=== PATIENT | male | born 1990 | race Caucasian/White ===

== ENCOUNTER 2017-06-09 19:12 | Emergency (ER) | payer OTHER ==
[~2017-06-09] VITALS: Ht 177.8 cm; Wt 83.2 kg
[2017-06-09 19:27] VITALS: TEMP 37; Ht 177.8 cm; Wt 83.2 kg
--- NOTE | 2017-06-09 20:58 | EMERGENCY ROOM VISIT NOTE ---
History First contact with patient: 20:30 Chief Complaint: FLANK PAIN Stated Complaint: LEFT SIDE PAIN, NAUSEA History of Present Illness The patient is a 26 year old male who presents to the Emergency Room with complaints of intermittent left flank pain. The patient reports that he has had intermittent mild left flank pain over the past few weeks. He states that while at work this evening, he had an episode of severe left flank pain. The pain was initially very sharp but then became dull and aching. He had associated nausea and difficulty breathing with the severe pain but these have resolved. He denies any abdominal pain, vomiting, diarrhea, constipation or fevers. He reports that initially, the pain was an 8/10 that he now reports the pain is 2/10. He does report he has had some increased frequency of urination with some turning since yesterday. He reports his urine appeared to be slightly red at the end of the stream. He denies any history of kidney stones or urinary tract infections. Review of Systems A complete 10 point review of systems was reviewed with the patient with pertinent positives and negatives as per history of present illness. All else were negative. Past Medical/Surgical History Medical Problems: (1) No significant past medical history Surgical Problems: (1) No significant past surgical history Family History Diabetes mellitus FHx: cancer Hypertension Kidney stones Social History Smoking Status: Never Smoker Alcohol Use: occasionally Occupation Status: employed Current/Historical Medications Scheduled Ondasetron Odt (Zofran Odt), 4 MG SL Q6H Tamsulosin Hcl (Flomax), 0.4 MG PO DAILY Scheduled PRN Oxycodone/Acetaminophen 5MG/325MG (Percocet 5MG/325MG), 1-2 TABS PO Q4H PRN for Pain Physical Exam Vital Signs Date Time Temp Pulse Resp B/P (MAP) Pulse Ox O2 Delivery O2 Flow Rate FiO2 06/09/17 22:40 79 16 126/79 99 06/09/17 21:30 86 16 128/80 96 Room Air 06/09/17 19:27 37.0 98 16 153/89 98 Room Air Physical Exam VITALS: Vitals are noted on the nurse's note and reviewed by myself. Vital signs stable. GENERAL: This is a 26-year-old male, in no acute distress, nondiaphoretic, well- developed well-nourished. SKIN: The skin was without rashes. MOUTH: Mucous membranes moist. HEART: Regular rate and rhythm without murmurs gallops or rubs. LUNGS: Clear to auscultation bilaterally without wheezes, rales or rhonchi. ABDOMEN: Positive bowel sounds x 4. Soft, nontender to palpation. MUSCULOSKELETAL: Mild left CVA tenderness. NEURO: Patient was alert and oriented to person place and time. Medical Decision & Procedures ER Provider Diagnostic Interpretation: ABD/PELVIS WITHOUT FOR STONE HISTORY: 26 years-old Male left flank pain, nausea acute left-sided flank pain with nausea COMPARISON: None available TECHNIQUE: Multiple axial CT images of the abdomen and pelvis were obtained without contrast. A dose lowering technique was used consistent with the principals of REBEKAH. FINDINGS: Lung bases are generally clear. No pneumatosis or pneumoperitoneum. Imaged inferior cardiac chambers are unremarkable. Liver, spleen, gallbladder, pancreas and adrenal glands are within normal limits. There are several nonobstructing renal calculi on the right measuring up to 5 mm. Punctate nonobstructing calculus of the inferior pole left kidney. Mild left-sided hydroureteronephrosis secondary to a 3 x 3 x 2 mm calculus of the left ureterovesicular junction. Mild perinephric and periureteral inflammatory stranding. Urinary bladder and prostate appear unremarkable. Aorta is normal in both course and caliber. No bulky adenopathy. No bowel obstruction or focal bowel wall thickening. Normal appendix. Soft tissues are unremarkable. Bones appear intact. IMPRESSION: 1. Mild left-sided hydroureteronephrosis secondary to a 3 x 3 x 2 mm calculus of the left ureterovesicular junction. 2. Bilateral nonobstructing nephrolithiasis, right greater than left. Laboratory Results 06/09/17 21:03 Red Blood Count 5.05, Mean Corpuscular Volume 85.7, Mean Corpuscular Hemoglobin 30.1, Mean Corpuscular Hemoglobin Concent 35.1, Mean Platelet Volume 10.0, Neutrophils (%) (Auto) 75.5, Lymphocytes (%) (Auto) 15.1, Monocytes (%) (Auto) 6.9, Eosinophils (%) (Auto) 2.0, Basophils (%) (Auto) 0.4, Neutrophils # (Auto) 5.80, Lymphocytes # (Auto) 1.16, Monocytes # (Auto) 0.53, Eosinophils # (Auto) 0.15, Basophils # (Auto) 0.03 06/09/17 21:03 Test 06/09/17 20:58 06/09/17 21:03 Urine Color YELLOW Urine Appearance CLEAR (CLEAR) Urine pH 5.0 (4.5-7.5) Urine Specific [place] 1.029 (1.000-1.030) Urine Protein TRACE (NEG) Urine Glucose (UA) NEG (NEG) Urine Ketones NEG (NEG) Urine Occult Blood 3+ (NEG) Urine Nitrite NEG (NEG) Urine Bilirubin NEG (NEG) Urine Urobilinogen NEG (NEG) Urine Leukocyte Esterase NEG (NEG) Urine WBC (Auto) 1-5 /hpf (0-5) Urine RBC (Auto) >30 /hpf (0-4) Urine Hyaline Casts (Auto) 10-30 /lpf (0-5) Urine Epithelial Cells (Auto) 20-30 /lpf (0-5) Urine Bacteria (Auto) NEG (NEG) White Blood Count 7.68 K/uL (4.8-10.8) Red Blood Count 5.05 M/uL (4.7-6.1) Hemoglobin 15.2 g/dL (14.0-18.0) Hematocrit 43.3 % (42-52) Mean Corpuscular Volume 85.7 fL (80-100) Mean Corpuscular Hemoglobin 30.1 pg (25-34) Mean Corpuscular Hemoglobin Concent 35.1 g/dl (32-36) Platelet Count 179 K/uL (130-400) Mean Platelet Volume 10.0 fL (7.4-10.4) Neutrophils (%) (Auto) 75.5 % Lymphocytes (%) (Auto) 15.1 % Monocytes (%) (Auto) 6.9 % Eosinophils (%) (Auto) 2.0 % Basophils (%) (Auto) 0.4 % Neutrophils # (Auto) 5.80 K/uL (1.4-6.5) Lymphocytes # (Auto) 1.16 K/uL (1.2-3.4) Monocytes # (Auto) 0.53 K/uL (0.11-0.59) Eosinophils # (Auto) 0.15 K/uL (0-0.5) Basophils # (Auto) 0.03 K/uL (0-0.2) RDW Standard Deviation 38.0 fL (36.4-46.3) RDW Coefficient of Variation 12.1 % (11.5-14.5) Immature Granulocyte % (Auto) 0.1 % Immature Granulocyte # (Auto) 0.01 K/uL (0.00-0.02) Anion Gap 6.0 mmol/L (3-11) Est Creatinine Clear Calc Drug Dose 124.5 ml/min Estimated GFR () 131.6 Estimated GFR (Non- 113.6 BUN/Creatinine Ratio 14.2 (10-20) Calcium Level 9.0 mg/dl (8.5-10.1) Total Bilirubin 0.4 mg/dl (0.2-1) Aspartate Amino Transf (AST/SGOT) 33 U/L (15-37) Alanine Aminotransferase (ALT/SGPT) 67 U/L (12-78) Alkaline Phosphatase 92 U/L (45-117) Total Protein 7.8 gm/dl (6.4-8.2) Albumin 4.2 gm/dl (3.4-5.0) Globulin 3.6 gm/dl (2.5-4.0) Albumin/Globulin Ratio 1.2 (0.9-2) Medications Administered Medications (Trade) Dose Ordered Sig/Michael Route Start Time Stop Time Status Last Admin Dose Admin Ondansetron HCl (ZOFRAN ODT 4MG Home Pack) 1 homepack UD ONCE PO 06/09/17 22:15 06/09/17 22:16 DC 06/09/17 22:39 1 HOMEPACK Oxycodone/ Acetaminophen (Percocet 5/ 325MG Home Pack) 1 homepack UD ONCE PO 06/09/17 22:15 06/09/17 22:16 DC 06/09/17 22:39 1 HOMEPACK Medical Decision Differential diagnosis includes kidney stone, pyelonephritis, musculoskeletal pain, herpes zoster, colitis, among others. The patient is a 26-year-old male who presents today complaining of left flank pain. Labs revealed and leukocytosis. Urinalysis showed 3+ blood and was not suggestive of infection. CT showed a stone at the left UVJ. Patient did not require any analgesic the emergency department. He was informed of the findings. He was given home packs and prescriptions of Zofran and Percocet. He was given a prescription of Flomax. He was given a urine strainer. He was instructed to follow-up with his PCP and urology as needed. Based on the patient's presentation and work up, I feel the patient is stable for outpatient treatment. The patient was educated to return to the emergency department for any worsening of their current condition or new/concerning symptoms. He will follow up with his PCP/urology. [facility] Drug Monitoring Program Search Results: patient reviewed within database Medication Reconcilliation Current Medication List: was personally reviewed by me Blood Pressure Screening Patient's blood pressure: Normal blood pressure Impression Primary Impression: Ureteral calculus, left Departure Information Dispostion Home / Self-Care Condition GOOD Prescriptions Tamsulosin Hcl (FLOMAX) 0.4 Mg Cap 0.4 MG PO DAILY for 10 Days, #10 CAP Prov: Cheryl More PA-C 06/09/17 Oxycodone/Acetaminophen 5MG/325MG (PERCOCET 5MG/325MG) Tab 1-2 TABS PO Q4H Y for Pain, #15 TAB For Initial Treatment Prov: Cheryl More PA-C 06/09/17 Ondasetron Odt (ZOFRAN ODT) 4 Mg Tab 4 MG SL Q6H for Nausea, #15 TAB Prov: Cheryl More PA-C 06/09/17 Referrals No Doctor, Assigned (PCP) Gisele Roper MD Patient Instructions My [facility] Additional Instructions You have been treated in the Emergency Department today for a Kidney Stone ( Nephrolithiasis). You have been prescribed Percocet to be used for pain control. This is a narcotic medication. You cannot drive or consume alcohol while on this medicine. This medicine should only be used for pain that cannot be controlled with [id number] pain medicines. You have been prescribed Zofran to be used for any nausea or vomiting. Take as prescribed. You have been prescribed Flomax 0.4 mg to be taken ONCE daily. This medicine has been prescribed as it can help relax the smooth muscles of the urinary tract increasing transit time of the kidney stone. For pain control, you can use the following [id number] medicines (if >12 yo): - Regular strength (325mg/tab) Tylenol (acetaminophen) 2 tabs every 4-6 hours as needed. Do not exceed 12 tablets in a 24 hour period. Avoid taking more than 4 grams (4000 mg) of Tylenol per day. This includes any other sources of acetaminophen you may take on a regular basis. - Regular strength (200 mg/tab) Advil (ibuprofen) 1-2 tabs every 4-6 hours as needed. Do not exceed a dose of 3200 mg per day. You have been provided a strainer and specimen collection cup. You should strain your urine to collect any passed stones. Your stones can be placed into the specimen cup and taken to your Urologist for further evaluation. Follow-up with your primary care provider within one week. You may also follow- up with urology as needed. Return to the Emergency Department if your symptoms persist despite the treatment plan outlined above or if you develop the following symptoms: intractable pain, fever, chills, or large amounts of blood in your urine.
[2017-06-09 21:23] LABS: BASO % 0.4 %; BASO ABS # 0.03 K/uL (0-0.2); EOS ABS # 0.15 K/uL (0-0.5); HEMATOCRIT 43.3 % (42-52); HEMOGLOBIN 15.2 g/dL (14.0-18.0); IG# 0.01 K/uL (0.00-0.02); LYMPH % 15.1 %; LYMPH ABS # 1.16 K/uL (1.2-3.4); MEAN CELL VOLUME 85.7 fL (80-100); MEAN CORPUSCULAR HEMOGLOBIN 30.1 pg (25-34); MEAN CORPUSCULAR HGB CONC 35.1 g/dl (32-36); MONO % 6.9 %; MONO ABS # 0.53 K/uL (0.11-0.59); NEUT % 75.5 %; PLATELET COUNT 179 K/uL (130-400); RED CELL DISTRIBUTION WIDTH CV 12.1 % (11.5-14.5); WHITE BLOOD COUNT 7.68 K/uL (4.8-10.8)
[2017-06-09 21:40] LABS: ALBUMIN 4.2 gm/dl (3.4-5.0); CREATININE 0.92 mg/dl (0.60-1.40); POTASSIUM 3.5 mmol/L (3.5-5.1)
[2017-06-09 21:43] LABS: TOTAL PROTEIN 7.8 gm/dl (6.4-8.2)
--- NOTE | 2017-06-09 21:43 | DIAGNOSTIC IMAGING REPORT ---
ABD/PELVIS WITHOUT FOR STONE HISTORY: 26 years-old Male left flank pain, nausea acute left-sided flank pain with nausea COMPARISON: None available TECHNIQUE: Multiple axial CT images of the abdomen and pelvis were obtained without contrast. A dose lowering technique was used consistent with the principals of REBEKAH. FINDINGS: Lung bases are generally clear. No pneumatosis or pneumoperitoneum. Imaged inferior cardiac chambers are unremarkable. Liver, spleen, gallbladder, pancreas and adrenal glands are within normal limits. There are several nonobstructing renal calculi on the right measuring up to 5 mm. Punctate nonobstructing calculus of the inferior pole left kidney. Mild left-sided hydroureteronephrosis secondary to a 3 x 3 x 2 mm calculus of the left ureterovesicular junction. Mild perinephric and periureteral inflammatory stranding. Urinary bladder and prostate appear unremarkable. Aorta is normal in both course and caliber. No bulky adenopathy. No bowel obstruction or focal bowel wall thickening. Normal appendix. Soft tissues are unremarkable. Bones appear intact. IMPRESSION: 1. Mild left-sided hydroureteronephrosis secondary to a 3 x 3 x 2 mm calculus of the left ureterovesicular junction. 2. Bilateral nonobstructing nephrolithiasis, right greater than left. The above report was generated using voice recognition software. It may contain grammatical, syntax or spelling errors. Electronically signed by: Steven Douglas M.D. 06/09/2017 9:42 PM Dictated Date/Time: 06/09/2017 9:38 PM
[2017-06-09] MEDS ORDERED: ONDANSETRON HOME PACK 4MG OD TAB PO ONE (22:15)
[2017-06-09] MEDS ORDERED: PERCOCET HOME PACK PO ONE (22:15)
[2017-06-09] MEDS ORDERED: OXYC-57 PO (22:29)
[2017-06-09] MEDS ORDERED: ONDA4TAB10 SL (22:29)
[2017-06-09] MEDS ORDERED: TAMS0.4C38 PO (22:31)
[2017-06-09 22:40] VITALS: BP 126/79; PULSE 79; O2SAT 99
== END 2017-06-09 22:40 | disposition home or self-care (01) ==
LOC: C.EDB 19:13 → C.EDA 22:40
DX: N20.1 Calculus of ureter (principal); D72.829 Elevated white blood cell count, unspecified; Z83.3 Family history of diabetes mellitus; Z82.49 Family history of ischemic heart disease and other diseases of the circulatory system; Z84.1 Family history of disorders of kidney and ureter

== ENCOUNTER 2017-09-30 07:27 | Emergency (ER) | payer OTHER ==
[~2017-09-30] VITALS: Ht 177.8 cm; Wt 82.5 kg
[~2017-09-30 07:27] MED LIST: ONDA4TAB10 SL; OXYC-57 PO
[2017-09-30 07:31] VITALS: Ht 177.8 cm; Wt 82.5 kg
[2017-09-30] MEDS ORDERED: ONDANSETRON INJ 2 MG/ML 2 ML VIAL IV STA (07:39)
[2017-09-30] MEDS ORDERED: SODIUM CHLORIDE 0.9% 1000ML 1,000 ML IV STA (07:39)
[2017-09-30] MEDS ORDERED: KETOROLAC TROMETHAMINE 30 MG/ML VIAL IV STA (07:39)
[2017-09-30] MEDS ORDERED: MoRPHine SULFATE 4 MG/ML 1 ML CARP\\VIAL IV PRN (07:45)
--- NOTE | 2017-09-30 07:48 | EMERGENCY ROOM VISIT NOTE ---
History Report prepared by Humphrey: Refugio Zaldivar Under the Supervision of: Dr. Chris Ann D.O. First contact with patient: 07:34 Chief Complaint: KIDNEY STONE Stated Complaint: KIDNEY STONE History of Present Illness The patient is a 26 year old male who presents to the Emergency Room with complaints of intermittent right sided flank pain that began 3 weeks ago. The patient states that he has a history of kidney stones, and had his last one in May of this year. There were 3 total stones in the kidney on this visit. He notes that his pain has onset and resolved 3 times over the past three weeks. This episode of pain began at 0530 this morning 2 hours ago. He has vomited twice since this morning, and is nauseous. He has not followed with urology. Source of History: patient Onset: 3 weeks ago Position: back (Right Flank) Timing: intermittent Associated Symptoms: + nausea, + vomiting Review of Systems See HPI for pertinent positives & negatives. A total of 10 systems reviewed and were otherwise negative. Past Medical & Surgical Medical Problems: (1) No significant past medical history Surgical Problems: (1) No significant past surgical history Family History Diabetes mellitus FHx: cancer Hypertension Kidney stones Social History Smoking Status: Never Smoker Alcohol Use: occasionally Occupation Status: employed Current/Historical Medications Scheduled Ondasetron Odt (Zofran Odt), 4 MG SL Q6H Tamsulosin Hcl (Flomax), 0.4 MG PO DAILY Scheduled PRN Oxycodone Immediate Rel Tab (Roxicodone Ir), 1-2 TAB PO Q4H PRN for Severe Pain Allergies Coded Allergies: No Known Allergies (Unverified , 09/30/17) Physical Exam Vital Signs Date Time Temp Pulse Resp B/P (MAP) Pulse Ox O2 Delivery O2 Flow Rate FiO2 09/30/17 10:26 36.7 74 18 114/55 97 09/30/17 10:10 74 18 114/55 97 09/30/17 08:10 88 09/30/17 07:31 36.7 76 18 132/82 94 Room Air Physical Exam GENERAL: Patient is awake, alert, and in no acute distress. Patient is very uncomfortable appearing. EYES: The conjunctivae are clear. The pupils are round and reactive. EARS, NOSE, MOUTH AND THROAT: The nose is without any evidence of any deformity. Mucous membranes are moist tongue is midline NECK: The neck is nontender and supple. RESPIRATORY: Normal respiratory effort is noted there is no evidence of wheezing rhonchi or rales CARDIOVASCULAR: Regular rate and rhythm noted there no murmurs rubs or gallops normal S1 normal S2 GASTROINTESTINAL: The abdomen is soft. Bowel sounds are present in all quadrants. Abdomen is nontender PELVIS: The Pelvis is stable. No tenderness to palpation is noted. BACK: No midline tenderness or or step-off noted range of motion in flexion extension as well as rotation no signs of muscle spasm noted. There is right CVA tenderness to percussion. MUSCULOSKELETAL/EXTREMITIES: There is no evidence of gross deformity full range of motion is noted in the hips and shoulders SKIN: There is no obvious evidence of any rash. There are no petechiae, pallor or cyanosis noted. NEUROLOGIC: Patient is awake alert and oriented x3. Medical Decision & Procedures ER Provider Diagnostic Interpretation: Radiology results as stated below per my review and radiologist interpretation: KUB HISTORY: Acute generalized abdominal pain with history of kidney stones ABDOMINAL PAIN/GI COMPARISON: CT abdomen and pelvis 06/09/2017. FINDINGS: The bowel gas pattern is non-obstructive. There is no organomegaly. 4 mm calculus of the superior pole right kidney redemonstrated. There are suggested additional nonobstructing calculi of the interpolar right kidney. No ureteral calculi or left nephrolithiasis identified. Calcifications of the pelvis suggest phleboliths. Indeterminate 2 mm calcification of the right hemipelvis. No pneumoperitoneum or pneumatosis. No fracture. IMPRESSION: Right-sided nephrolithiasis redemonstrated without definite ureteral calculi identified. 2 mm calcification of the right hemipelvis suggest phlebolith. Correlate with urinalysis to exclude ureteral calculus. Electronically signed by: Steven Douglas M.D. 09/30/2017 9:07 AM Dictated Date/Time: 09/30/2017 9:04 AM (RENAL)RETROPERITON COMP CLINICAL HISTORY: 26 years-old Male presenting with right flank pain. TECHNIQUE: Real-time grayscale and limited color Doppler ultrasound imaging of the kidneys and bladder was performed. COMPARISON: CT from 06/09/2017. FINDINGS: Right kidney: Normal echogenicity of renal parenchyma. Right kidney measures 11.0 cm. Mild pelvocaliectasis, which is new since prior CT. 7 mm hyperechogenic shadowing focus at the upper pole, likely renal calculus. A 1.1 cm simple cyst is also noted in the right kidney. Left kidney: Normal echogenicity of renal parenchyma. Left kidney measures 11.0 cm. No hydronephrosis. No convincing evidence of calculus or mass. Bladder: Under distended and incompletely evaluated. Hyperechogenic focus in the region of the right ureterovesical junction with twinkling artifact suggested. Bilateral ureteral jets present. Other: None. IMPRESSION: 1. Findings suspicious for mild right hydronephrosis. A partially obstructing calculus may be present at the right ureterovesical junction. 2. Nonobstructing right renal calculus. Electronically signed by: Rufus Paris M.D. 09/30/2017 9:06 AM Dictated Date/Time: 09/30/2017 9:03 AM Laboratory Results 09/30/17 07:20 Red Blood Count 5.24, Mean Corpuscular Volume 84.9, Mean Corpuscular Hemoglobin 30.0, Mean Corpuscular Hemoglobin Concent 35.3, Mean Platelet Volume 9.9, Neutrophils (%) (Auto) 73.0, Lymphocytes (%) (Auto) 18.8, Monocytes (%) (Auto) 6.2, Eosinophils (%) (Auto) 1.6, Basophils (%) (Auto) 0.4, Neutrophils # (Auto) 4.94, Lymphocytes # (Auto) 1.27, Monocytes # (Auto) 0.42, Eosinophils # (Auto) 0.11, Basophils # (Auto) 0.03 09/30/17 07:20 Test 09/30/17 07:20 09/30/17 09:10 White Blood Count 6.77 K/uL (4.8-10.8) Red Blood Count 5.24 M/uL (4.7-6.1) Hemoglobin 15.7 g/dL (14.0-18.0) Hematocrit 44.5 % (42-52) Mean Corpuscular Volume 84.9 fL (80-100) Mean Corpuscular Hemoglobin 30.0 pg (25-34) Mean Corpuscular Hemoglobin Concent 35.3 g/dl (32-36) Platelet Count 227 K/uL (130-400) Mean Platelet Volume 9.9 fL (7.4-10.4) Neutrophils (%) (Auto) 73.0 % Lymphocytes (%) (Auto) 18.8 % Monocytes (%) (Auto) 6.2 % Eosinophils (%) (Auto) 1.6 % Basophils (%) (Auto) 0.4 % Neutrophils # (Auto) 4.94 K/uL (1.4-6.5) Lymphocytes # (Auto) 1.27 K/uL (1.2-3.4) Monocytes # (Auto) 0.42 K/uL (0.11-0.59) Eosinophils # (Auto) 0.11 K/uL (0-0.5) Basophils # (Auto) 0.03 K/uL (0-0.2) RDW Standard Deviation 38.1 fL (36.4-46.3) RDW Coefficient of Variation 12.2 % (11.5-14.5) Immature Granulocyte % (Auto) 0.0 % Immature Granulocyte # (Auto) 0.00 K/uL (0.00-0.02) Anion Gap 6.0 mmol/L (3-11) Est Creatinine Clear Calc Drug Dose 116.9 ml/min Estimated GFR () 122.0 Estimated GFR (Non- 105.2 BUN/Creatinine Ratio 10.3 (10-20) Calcium Level 8.5 mg/dl (8.5-10.1) Urine Color DK YELLOW Urine Appearance CLEAR (CLEAR) Urine pH 6.5 (4.5-7.5) Urine Specific [place] 1.026 (1.000-1.030) Urine Protein 1+ (NEG) Urine Glucose (UA) NEG (NEG) Urine Ketones NEG (NEG) Urine Occult Blood 3+ (NEG) Urine Nitrite NEG (NEG) Urine Bilirubin NEG (NEG) Urine Urobilinogen NEG (NEG) Urine Leukocyte Esterase NEG (NEG) Urine WBC (Auto) 1-5 /hpf (0-5) Urine RBC (Auto) >30 /hpf (0-4) Urine Hyaline Casts (Auto) 10-30 /lpf (0-5) Urine Epithelial Cells (Auto) >30 /lpf (0-5) Urine Bacteria (Auto) NEG (NEG) Urine Renal Epithelial Cells /lpf (0-5) Urine Crystals CALCIUM OXALATE (NONE Urine Mucus PRESENT (NONE PRSENT) Laboratory results per my review. Medications Administered Medications (Trade) Dose Ordered Sig/Michael Route Start Time Stop Time Status Last Admin Dose Admin Sodium Chloride 1,000 ml @ 999 mls/hr Q1H1M STAT IV 09/30/17 07:39 09/30/17 08:39 DC 09/30/17 07:58 999 MLS/HR Ondansetron HCl (Zofran Inj) 4 mg NOW STAT IV 09/30/17 07:39 09/30/17 07:41 DC 09/30/17 07:58 4 MG Ketorolac Tromethamine (Toradol Inj) 10 mg NOW STAT IV 09/30/17 07:39 09/30/17 07:41 DC 09/30/17 07:57 10 MG Morphine Sulfate (MoRPHine SULFATE INJ) 4 mg Q15M PRN IV 09/30/17 07:45 09/30/17 10:41 DC 09/30/17 07:57 4 MG ED Course 0730: The patient was evaluated in room B10. A complete history and physical examination were performed. 0739: Ordered Toradol 10 mg IV, Zofran 4 mg IV, Sodium Chloride 1000 mL @ 999 mL /hr IV. 0745: Ordered Morphine Sulfate 4 mg IV. 1006: Upon reevaluation, the patient is resting in bed. I discussed the results and treatment plan with him. He verbalized agreement of the treatment plan. The patient was discharged home. Medical Decision Differential diagnosis: Etiologies such as renal colic, appendicitis, diverticulitis, mesenteric ischemia, aortic pathology, infections, inflammatory bowel disease, PUD, biliary pathology, UTI, as well as others were entertained. Nursing notes reviewed. The patient is a 26-year-old male who presented to the emergency department for an evaluation of flank pain. The patient noticed acute onset of pain. Patient has a history of kidney stones. I reviewed the patient's previous CT the abdomen and pelvis. The patient was treated with IV fluids IV pain medicine and IV anti-medics. On subsequent reevaluation he was feeling much better. I discussed patient's laboratory and radiographic studies with him. I do feel that this likely represents renal colic. His ultrasound showed mild hydronephrosis. He was encouraged to continue all medications as prescribed. He was encouraged to drink plenty clear liquids. He was also encouraged to follow-up with his primary care physician or return to the emergency department immediately if symptoms change worsen or the need arise. Medication Reconcilliation Current Medication List: was personally reviewed by me Blood Pressure Screening Patient's blood pressure: Elevated blood pressure Blood pressure disposition: Elevated BP felt to be situational Impression Primary Impression: Kidney stone Additional Impression: Right flank pain Scribe Attestation The scribe's documentation has been prepared under my direction and personally reviewed by me in its entirety. I confirm that the note above accurately reflects all work, treatment, procedures, and medical decision making performed by me. Departure Information Dispostion Home / Self-Care Prescriptions Tamsulosin Hcl (FLOMAX) 0.4 Mg Cap 0.4 MG PO DAILY, #10 CAP Prov: Chris Ann, DO 09/30/17 Ondasetron Odt (ZOFRAN ODT) 4 Mg Tab 4 MG SL Q6H for Nausea, #15 TAB Prov: Chris Ann, DO 09/30/17 Oxycodone Immediate Rel Tab (ROXICODONE IR) 5 Mg Tab 1-2 TAB PO Q4H Y for Severe Pain, #24 TAB Prov: Chris Ann, DO 09/30/17 Referrals No Doctor, Assigned (PCP) Forms HOME CARE DOCUMENTATION FORM, IMPORTANT VISIT INFORMATION Patient Instructions My [facility] Additional Instructions Continue all medications as prescribed. Drink plenty clear liquids. Continue using Motrin and Tylenol as directed for mild pain. Follow-up with your family doctor to discuss whether or not you need to see a urologist to further evaluate your kidney stone issues. Return to the emergency department immediately if symptoms change worsen or the need arises. Problem Qualifiers
[2017-09-30 08:16] LABS: BASO % 0.4 %; BASO ABS # 0.03 K/uL (0-0.2); EOS % 1.6 %; EOS ABS # 0.11 K/uL (0-0.5); HEMATOCRIT 44.5 % (42-52); HEMOGLOBIN 15.7 g/dL (14.0-18.0); LYMPH % 18.8 %; LYMPH ABS # 1.27 K/uL (1.2-3.4); MEAN CELL VOLUME 84.9 fL (80-100); MEAN CORPUSCULAR HGB CONC 35.3 g/dl (32-36); MEAN PLATELET VOLUME 9.9 fL (7.4-10.4); MONO % 6.2 %; MONO ABS # 0.42 K/uL (0.11-0.59); NEUT ABS # 4.94 K/uL (1.4-6.5); PLATELET COUNT 227 K/uL (130-400); RED CELL DISTRIBUTION WIDTH CV 12.2 % (11.5-14.5); RED CELL DISTRIBUTION WIDTH SD 38.1 fL (36.4-46.3); WHITE BLOOD COUNT 6.77 K/uL (4.8-10.8)
[2017-09-30 08:34] LABS: CALCIUM 8.5 mg/dl (8.5-10.1); CREATININE 0.98 mg/dl (0.60-1.40); POTASSIUM 3.2 mmol/L (3.5-5.1)
--- NOTE | 2017-09-30 09:08 | DIAGNOSTIC IMAGING REPORT ---
(RENAL)RETROPERITON COMP CLINICAL HISTORY: 26 years-old Male presenting with right flank pain. TECHNIQUE: Real-time grayscale and limited color Doppler ultrasound imaging of the kidneys and bladder was performed. COMPARISON: CT from 06/09/2017. FINDINGS: Right kidney: Normal echogenicity of renal parenchyma. Right kidney measures 11.0 cm. Mild pelvocaliectasis, which is new since prior CT. 7 mm hyperechogenic shadowing focus at the upper pole, likely renal calculus. A 1.1 cm simple cyst is also noted in the right kidney. Left kidney: Normal echogenicity of renal parenchyma. Left kidney measures 11.0 cm. No hydronephrosis. No convincing evidence of calculus or mass. Bladder: Under distended and incompletely evaluated. Hyperechogenic focus in the region of the right ureterovesical junction with twinkling artifact suggested. Bilateral ureteral jets present. Other: None. IMPRESSION: 1. Findings suspicious for mild right hydronephrosis. A partially obstructing calculus may be present at the right ureterovesical junction. 2. Nonobstructing right renal calculus. Electronically signed by: Rufus Paris M.D. 09/30/2017 9:06 AM Dictated Date/Time: 09/30/2017 9:03 AM
--- NOTE | 2017-09-30 09:08 | DIAGNOSTIC IMAGING REPORT ---
KUB HISTORY: Acute generalized abdominal pain with history of kidney stones ABDOMINAL PAIN/GI COMPARISON: CT abdomen and pelvis 06/09/2017. FINDINGS: The bowel gas pattern is non-obstructive. There is no organomegaly. 4 mm calculus of the superior pole right kidney redemonstrated. There are suggested additional nonobstructing calculi of the interpolar right kidney. No ureteral calculi or left nephrolithiasis identified. Calcifications of the pelvis suggest phleboliths. Indeterminate 2 mm calcification of the right hemipelvis. No pneumoperitoneum or pneumatosis. No fracture. IMPRESSION: Right-sided nephrolithiasis redemonstrated without definite ureteral calculi identified. 2 mm calcification of the right hemipelvis suggest phlebolith. Correlate with urinalysis to exclude ureteral calculus. Electronically signed by: Steven Douglas M.D. 09/30/2017 9:07 AM Dictated Date/Time: 09/30/2017 9:04 AM
[2017-09-30] MEDS ORDERED: OXYC1TAB3 PO (10:03)
[2017-09-30] MEDS ORDERED: TAMS0.4C38 PO (10:03)
[2017-09-30] MEDS ORDERED: ONDA4TAB10 SL (10:03)
[2017-09-30 10:26] VITALS: BP 114/55; PULSE 74; TEMP 36.7; O2SAT 97
== END 2017-09-30 10:20 | disposition home or self-care (01) ==
LOC: C.EDB 07:28
DX: N20.0 Calculus of kidney (principal); R10.9 Unspecified abdominal pain